=== PATIENT | male | born 1970 | race Caucasian/White ===

== ENCOUNTER 2016-08-25 10:52 | Emergency (ER) | payer OTHER ==
[~2016-08-25] VITALS: Ht 175.3 cm; Wt 87.3 kg
[~2016-08-25 10:52] MED LIST: HYDROCHLOROTHIA25 MG PO; TRAZODONE HCL50 MG PO
[2016-08-25 12:03] LABS: HEMATOCRIT 40.8 % (38.0-50.0); MCH 28.7 PG (29.0-34.0); MCHC 33.1 G/DL (30.0-36.0); MCV 86.6 FL (86-99); MEAN PLAT.VOLUME 8.7 uM^3 (9.0-12.4); PLATELET COUNT 490 K/uL (156-360); RBC DIS.WIDTH-CV 13.4 % (11.8-14.6); RBC DIS.WIDTH-SD 42.4 % (39-53); RED BLOOD COUNT 4.71 M/uL (4.00-5.50); WHITE BLOOD COUNT 12.3 K/uL (4.1-10.2)
[2016-08-25 12:18] LABS: CHLORIDE 97 mEq/L (99-109); POTASSIUM 4.1 mEq/L (3.7-5.4); SODIUM 135 mEq/L (136-147)
[2016-08-25 12:19] LABS: GLUCOSE 137 mg/dL (70-99)
[2016-08-25 12:21] LABS: ANION GAP 12 MEQ/L (2-14)
[2016-08-25 12:23] LABS: GFR ESTIMATE (CALCULATED) > 59 mL/min/; TOTAL BILIRUBIN 0.6 mg/dL (0.0-1.0)
[2016-08-25 12:24] LABS: ALKALINE PHOSPHATASE 54 IU/L (3-129); UREA NITROGEN (BUN) 6 mg/dL (9-23)
[2016-08-25 12:26] LABS: DIRECT BILIRUBIN 0.3 mg/dL (0.0-0.3)
[2016-08-25 12:27] LABS: LIPASE 19 U/L (1.0-51.0)
[2016-08-25] MEDS ORDERED: CIPRO500 MG PO (14:12)
[2016-08-25] MEDS ORDERED: FLAGYL500 MG PO (14:12)
[2016-08-25 14:16] LABS: ADD MIUA? NO; BILIRUBIN NEGATIVE; BLOOD NEGATIVE; COLOR STRAW ((YELLOW)); GLUCOSE (STRIP) NEGATIVE; KETONES NEGATIVE; LEUKOCYTES NEGATIVE; NITRITE NEGATIVE; PROTEIN (STRIP) NEGATIVE; SPECIFIC GRAVITY 1.025 (1.000-1.030); UCUL ADDED? NO; UROBILINOGEN 0.2 MG/DL (0.2-1.0)
[2016-08-25 14:27] LABS: C DIFF TOXIN NEGATIVE (NEGATIVE)
[2016-08-25 14:28] LABS: PROBE CHECK PASS; SPECIMEN PROCESSING CONTROL PASS
[2016-08-25 14:44] VITALS: BP 136/81
[2016-08-27 14:03] LABS: POC NON-PRINT COM 1 ND
== END 2016-08-25 14:45 | disposition home or self-care (01) ==
LOC: EME 10:52
PROVIDERS: Physician Assistant
DX: K61.0 Anal abscess (principal); K60.5 Anorectal fistula; K58.0 Irritable bowel syndrome with diarrhea; I10 Essential (primary) hypertension; F32.9 Major depressive disorder, single episode, unspecified; F17.200 Nicotine dependence, unspecified, uncomplicated
CPT/HCPCS: 72193; 74022; 80048; 80076; 81003; 82272; 83690; 85027; 87493; 87506; 99281; 99284; J7030

== ENCOUNTER 2016-10-01 12:31 | Emergency (ER) | payer OTHER ==
[~2016-10-01] VITALS: Ht 175.3 cm; Wt 84.3 kg
[~2016-10-01 12:31] MED LIST changes: +CIPRO500 MG PO; +FLAGYL500 MG PO
[2016-10-01 12:41] VITALS: BP 154/117
== END 2016-10-01 12:47 | disposition left against medical advice (07) ==
LOC: EME 12:31
DX: R10.9 Unspecified abdominal pain (principal); Z53.21 Procedure and treatment not carried out due to patient leaving prior to being seen by health care provider

== ENCOUNTER 2017-03-22 07:15 | Emergency (ER) | payer OTHER ==
[~2017-03-22] VITALS: Ht 175.3 cm; Wt 92.3 kg
[2017-03-22] MEDS ORDERED: AUGMENTIN875 MG PO (07:48)
[2017-03-22 08:01] VITALS: BP 160/89
== END 2017-03-22 08:00 | disposition home or self-care (01) ==
LOC: EME 07:15
DX: K61.1 Rectal abscess (principal); I10 Essential (primary) hypertension; F41.9 Anxiety disorder, unspecified; F32.9 Major depressive disorder, single episode, unspecified; F10.10 Alcohol abuse, uncomplicated; F17.200 Nicotine dependence, unspecified, uncomplicated
CPT/HCPCS: 99281; 99284

== ENCOUNTER 2017-06-12 17:06 | Emergency (ER) | payer OTHER ==
[~2017-06-12] VITALS: Ht 172.7 cm; Wt 95.9 kg
[~2017-06-12 17:06] MED LIST changes: +AUGMENTIN875 MG PO
[2017-06-12] MEDS ORDERED: HYDROCHLOROTHIA25 MG PO (20:41)
[2017-06-12] MEDS ORDERED: BACTROBAN OINTM22 GM TP (20:41)
[2017-06-12] MEDS ORDERED: BACTRIM,SEPT1 TABLET PO (20:41)
[2017-06-12 21:02] VITALS: BP 168/104
== END 2017-06-12 20:35 | disposition home or self-care (01) ==
LOC: EME 17:06 → EXP 17:06
DX: L02.215 Cutaneous abscess of perineum (principal); I10 Essential (primary) hypertension
CPT/HCPCS: 99281; 99283

== ENCOUNTER → 2017-10-28 | Outpatient (CLI) | payer OTHER ==
[~2017-10-28] MED LIST changes: +BACTRIM,SEPT1 TABLET PO; +BACTROBAN OINTM22 GM TP; +ZESTRIL10 MG PO
== END | disposition home or self-care (01) ==
LOC: AMB 12:55
DX: K60.3 Anal fistula (principal); K62.89 Other specified diseases of anus and rectum; K63.3 Ulcer of intestine; K52.9 Noninfective gastroenteritis and colitis, unspecified; K63.5 Polyp of colon; Z86.010 Personal history of colon polyps; F17.200 Nicotine dependence, unspecified, uncomplicated; I10 Essential (primary) hypertension; D50.9 Iron deficiency anemia, unspecified; Z82.49 Family history of ischemic heart disease and other diseases of the circulatory system; E66.9 Obesity, unspecified; Z68.31 Body mass index [BMI] 31.0-31.9, adult
CPT/HCPCS: 88305; 93005; J2250; J3010